=== PATIENT | male | born 2000 | race Caucasian/White ===

== ENCOUNTER 2018-08-31 08:29 | Emergency (ER) | payer OTHER ==
--- OUTSIDE RECORDS SUMMARY | 2018-08-31 08:41 | XMS REPORT | Continuity of Care Document ---
:2000 External Reference #:[id number] Author Name Genaro Olivera M.D. Address [address] [facility] [address] [place] [address] Care Team Providers Name Role Phone Genaro Olivera M.D. 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 Active Onset: 04/28/2018 Psoriasis Genaro Olivera M.D. Active Onset: 04/28/2018 Psoriasis with arthropathy Genaro Olivera M.D. Active Family History Date Family Member(s) Problem(s) Comments Father Hypertension Mother Anxiety First Sister None First Sister Magaly Social History Type Date Description Comments Sex Unknown Education Currently working on their bachelor's degree (at [employer], studying geology w/ minor in chemistry, hoping to become a senior accounting specialist). Marital Status Patient is single Sleep Typically sleeps 10 hours a night Tobacco Use Reviewed: 04/28/18 Denies Cigarette Use Smoking Status Reviewed: 04/28/18 Denies Cigarette Use Sun Exposure Moderate amount of sun exposure. Uses sunscreen Seat Belt/Car Seat Always uses a seat belt Bike Helmet Patient always wears a bike helmet Guns in Home There are not guns in the home Smoke Alarms There are smoke alarms in the house Currently Active The patient is currently not sexually active Father's Occupation Manager Membership Mother's Occupation Therapeutic Dietitian/Media Liaison Officer Allergies, Adverse Reactions, Alerts Date Description Reaction Status Severity Comments 04/06/2004 Zithromax Active abdominal pain and vomiting 06/14/2013 Cephalexin Active possible drug rash (see 06/14/13 note) Medications Medication Date Status Form Strength Qnty SIG Indications Ordering Provider Chantal Marie 08/24/ Active Aerosol 100-25mcg/ 28unit 1 puff R05 Silcoff , 2018 Inh s every day; Genaro, for cough; M.D. stop when cough resolved; resume at onset of colds; rinse mouth out after use Proair 08/24/ Active Aerosol 108(90Base 1units 2 puffs R05 Silcoff, Respiclick 2017 ) mcg/Act every 4 Genaro, hours as M.D. needed for cough, wheezing, shortness of breath Enbrel 10/14/ Active Solution 50mg/ml use as L40.9 Last Martinez 2017 Auto-Injec directed; ert M.D. t for psoriatic arthritis L40.50 Ibuprofen 07/25/20 Hx Tablets 800mg 60tabs 1 tablet up to M08.3 Silcoff , 17 - every 8 hours as Genaro 07/25/20 needed for M.D. 18 inflamed and painful fingers/hands Calcipotriene 06/10/20 Hx Cream 0.005% apply to L40.9 Mcalliste 16 - forehead/hairlin r, 04/27/20 e once a day as Azra 18 needed for , psoriasis Fluocinolone 03/27/20 Hx Oil 0.01% 236.56m apply to L40.9 Silcoff, Acetonide Scalp 16 - l involved areas Genaro 04/27/20 of scalp at M.D. 18 night as needed, for seborrhea Z00.129 Prednisone 06/14/2013 - Hx Tablets 10mg 56tabs 6 po qam for 693.0 Silcoeros, 06/28/2013 5 days then Etta Lam 4 po qam for 3 days then 2 po qam for 3 days then 1 po qam for 3 days then d/c Omeprazole 01/21/2012 - Hx Capsules DR 40mg 30caps Take 1 530.81 Silcoff, 02/13/2015 Capsule Etta Lam Daily For Acid Reflux. Temovate 12/25/2011 - Hx Solution 0.05% 50ml apply to L40.9 Silcoff, 04/21/2017 affected Etta Lam area on scalp 2x/day as needed (don't use on same day as fluocinolone ) Z00.129 Omeprazole 12/25/2011 - Hx Capsules DR 20mg 30caps 1 by mouth 530.81 Charles 01/21/2012 every day for A. acid reflux Etta Rodarte Zantac 75 12/21/2011 - Hx Tablets 75mg otc as Directed Unknown 12/28/2012 Denis May Take 11/20/2011 - Hx as needed for 787.02 Silcoff, Ondansetron Odt 02/13/2015 nausea Genaro, (4MG) Up To M.D. Every 4HRS Ondansetron Odt 11/20/2011 - Hx Tablets 4mg 10tabs 1 by mouth 787.02 Silcoff, 08/11/2012 Dispers every 4 hours Genaro as needed for M.D. nausea Ketoconazole 11/18/2011 - Hx Shampoo 2% 120ml apply to 690.11 Silcoff, 12/29/2012 affected area Genaro, every other M.D. day until much better, then taper Nystatin/Triamci 10/11/2011 - Hx Cream 99548 80grams apply bid x Silcoff, nolone 11/17/2011 0-0.1 10-14 days Genaro, Unit/ M.D. GM-% Ketoconazole 09/05/2011 - Hx Cream 2% 80gr apply to 690.18 Silcoff, 11/17/2011 affected areas Genaro, bid x 2 weeks M.D. Hydrocortisone 09/05/2011 - Hx Cream 1% 1tube apply to 690.18 Silcoff, Maximum Strength 11/17/2011 affected areas Genaro, up to bid x 2 M.D. week Advair Diskus 09/23/2008 - Hx Misc 250/5 2sample 1 puff bid; 786.2 Silcoff, 06/18/2011 0 Gargle After Genaro, Use; stop when M.D. cough has been gone for about 1wk; resume at onset of colds Ventolin HFA 09/23/2008 - Hx Aerosol 108mc 1sample 2 Puffs Q4H 786.2 Silcoff, 06/18/2011 g/Act prn For Cough, Genaro, Wheezing, SOB; M.D. use w/ a spacer Aerochamber Plus 09/23/2008 - Hx Misc 1units Use as 786.2 Silcoff, 06/18/2011 Directed For Genaro, ALL Metered M.D. Dose Inhalers Robitussin ac 09/23/2008 - Hx 8Oz 2 tsp po q4h 786.2 Silcoff, 10/23/2008 prn for cough Etta Lam Ciprodex 07/12/2008 - Hx Suspension 0.3-0 1Bottle 4 gtts To 380.10 Silcoff, 07/19/2008 .1% Right Ear bid Genaro For 1WK M.DRoberto Amoxicillin 07/12/2008 - Hx Suspension 400mg [id number] 6cc po tid for 380.10 Silcoff, 07/22/2008 Rec /5ML ear infection; Genaro fill this Rx M.DRoberto only if ear pain not much better by the end of this week Lamictal 02/12/2007 - Hx Tablets 25mg 120tabs qd Charles 02/12/2007 Gen Rodarte M.D. Klonopin 02/12/2007 - Hx Tablets 1mg 10tabs 1 tab q am and 02/12/2007 2 tabs q pm Gen Rodarte M.D. Zyprexa 02/12/2007 - Hx Tablets 20mg 30tabs 1 and 1/2 q am Charles 02/12/2007 Gen Rodarte M.D. Miralax 02/12/2007 - Hx Powder 1Bottle 30 cc qd Charles 02/12/2007 Gen Rodarte M.D. Ortho Tri-Cyclen 02/12/2007 - Hx Tablets 0.035 1Pack take as 02/12/2007 mg;0. directed ARoberto 18mg; Meir Rodarte M.D. Aristocort 08/18/2006 - Hx Ointment 0.1% 30gm rub in well 782.1 Charles 07/12/2008 tid Gen Rodarte M.D. Nystatin 08/18/2006 - Hx Suspension 100,0 480ml 1 tbsp tid 782.1 [facility] 07/12/2008 00Uni A. ts/ML Etta Rodarte Bactroban 07/30/2006 - Hx Cream 2% 30gm apply to 684 Silcoff, 08/13/2006 affected area Genaro, on face M.D. 4-6x/day (preferably after washing with an antibacterial soap) Mebendazole 07/02/2006 - Hx Chewtabs 100mg 5units 1 po x1 dose 127.4 Charles 07/03/2006 each person in A. family should Klepashonna, take it M.D. Nystatin 07/02/2006 - Hx Cream 100,0 30gm apply to 112.2 Jarod, 08/01/2006 00Uni affected area Genaro, ts/GM on penis (and M.D. buttocks prn) tid prn Amoxicillin 11/21/2005 - Hx Chewtabs 250mg take 1 tablet Breiman, 12/01/2005 3 times A day Hilda, for 10 days N.P. So 10/15/2005 - Hx Breiman, 10/16/2005 Hilda, N.P. Sodium Sulamyd 10/15/2005 - Hx Solution 10% 1bottle instill 1 or 2 Breiman, Opthalmic 10/19/2005 drops in the Hilda, lower N.P. lid of the affected eye 4 times A day Cortisporin Otic 06/11/2005 - Hx Solution 5mg;1 QS 1 dropperful 380.12 [facility] 06/18/2005 0000U (5 drops) qid A. ;10mg for 7 days Cayden /ALIYAH Quiles Bactrim 10/23/2004 - Hx Suspension 200mg QS 3 tsp bid for 466.0 [facility] 11/02/2004 ;40mg ten days A. /5ML Etta Rodarte Phenergan W/ 10/10/2004 - Hx Syrup 6.25m 8Oz 1-2 tsp qid 786.2 [facility] Codeine 12/27/2004 g;10m prn cough A. g/5ML Etta Rodarte Delsym 10/10/2004 - Hx Takes 786.2 [facility] 12/27/2004 According To A. Package Rory Rodarte M.D. (Over The Counter) Zithromax 04/04/2004 - Hx Suspension 100mg Breiman, 04/04/2004 /5 ML Hilda, N.P. Zithromax 04/04/2004 - Hx Suspension 200mg 38ml take 1 and 1/2 Silcoff , 04/06/2004 /5 ML tsp orally for Genaro, 5 days M.D. after meals Ceftin 02/28/2004 - Hx Suspension 250mg 100cc 1 teaspoon 2 Breiman, 04/04/2004 /5 ML times a day Hilda, for 10 days N.P. Penicillin VK 01/31/2004 - Hx Powder 250mg 150ml 1 tsp 3 times Breiman , 04/04/2004 /5 ML a day for 10 Hilda, days N.P. Penicillin VK 12/06/2003 - Hx Powder 250mg [id number] 1 tsp po qid Silcoff , 12/16/2003 /5 ML for 10 days Etta Lam Multivitamins W/ 06/21/2003 - Hx Tablets .25mg 120tabs 1 qd Charles Fluoride 06/19/2011 Gen Rodarte M.D. Multivitamins/Fl - Hx Chewtabs 1mg 1 by mouth V20.2 Unknown uoride 02/13/2015 once daily, chewed thoroughly Clobetasol - Hx Solution 0.05% 50units Apply To The L40.9 Silcoff, Propionate 04/27/2018 Affected Area Genaro, On Scalp Twice M.D. A Day as Needed--DO Not Use On Same Day as Fluocinolone Medications Administered in Office Medication Date Status Form Strength Qnty SIG Indications Ordering Provider [id number] Swine Flu Administered Injection Nurse's Vaccine 009 Schedule Immunizations CPT Code Status Date Vaccine Lot # [id number] Given 08/07/2018 Influenza Virus Vaccine, Quadrivalent, Split, [id number] Preservative Free 55557 Given 09/11/2017 Influenza Virus Vaccine, Quadrivalent, Split, Preservative Free 66565 Given 09/11/2016 Influenza Virus Vaccine, Quadrivalent, Split, [id number] Preservative Free 11946 Given 09/12/2015 Influenza Virus Vaccine, Quadrivalent, Split, [id number] Preservative Free 58174 Given 02/14/2015 Menactra Menningitis Vaccine [id number] 94586 Given 09/13/2014 Flu, Split Virus 3Yrs [id number] 38892 Given 08/30/2013 Flu, Split Virus 3Yrs [id number] 90541 Given 08/13/2012 Flu, Split Virus 3Yrs 68134 Given 08/13/2012 Flu, Split Virus, 2-35 Mo Dose [id number] 27251 Given 06/29/2012 Gardasil HPV vaccine [id number] 77921 Given 02/26/2012 Gardasil HPV vaccine [id number] 93482 Given 12/25/2011 Hep A, Ped/Adolscent, 2 Dose [id number] 38331 Given 12/25/2011 Gardasil HPV vaccine [id number] 22548 Given 09/05/2011 Flu, Split Virus 3Yrs [id number] 80367 Given 06/19/2011 Menactra Menningitis Vaccine [id number] 16145 Given 06/19/2011 Hep A, Ped/Adolscent, 2 Dose [id number] 41150 Given 09/26/2010 Flu, Split Virus 3Yrs [id number] 45983 Given 07/24/2010 Adacel or Boostrix, TDaP [id number] 98569 Given 08/03/2009 flu mist - live influenza virus vaccine for [id number] intranasal use 08105 Given 09/15/2008 Flu, Split Virus 3Yrs [id number] 69992 Given 02/12/2007 Varicella (Chicken Pox) Immunization [id number] 81468 Given 04/17/2004 Dtap Immunization (Tripedia) (Infanrix) 17441 Given 04/17/2004 MMR Virus Immunization 20015 Given 04/17/2004 Poliomyelitis Immunization 61536 Given 10/05/2003 Flu, Split Virus 3Yrs 16214 Given 03/09/2001 Prevnar (Pneumococcal Conjugate) 32272 Given 07/15/2000 Dtap Immunization (Tripedia) (Infanrix) 29228 Given 04/11/2000 MMR Virus Immunization 74457 Given 04/11/2000 Hib 4 Dose, Acthib 65895 Given 01/02/2000 Varicella (Chicken Pox) Immunization 88072 Given 08/27/1999 Hep B Immunization, Ped/Adolescent To 11 Yrs 58187 Given 05/30/1999 Hib 4 Dose, Acthib 80409 Given 05/30/1999 Dtap Immunization (Tripedia) (Infanrix) 50653 Given 05/30/1999 Poliomyelitis Immunization 98955 Given 03/30/1999 Poliomyelitis Immunization 42344 Given 03/30/1999 Dtap Immunization (Tripedia) (Infanrix) 44264 Given 03/30/1999 Hib 4 Dose, Acthib 40222 Given 01/25/1999 Poliomyelitis Immunization 14589 Given 01/25/1999 Dtap Immunization (Tripedia) (Infanrix) 71725 Given 01/25/1999 Hib 4 Dose, Acthib 93270 Given 1998 Hep B Immunization, Ped/Adolescent To 11 Yrs 23422 Given 1998 Hep B Immunization, Ped/Adolescent To 11 Yrs Vital Signs Date Vital Result Comment 08/24/2018 2:55pm BP Systolic 130 mmHg BP Diastolic 76 mmHg Respiratory Rate 12 /min not laboured Body Temperature 97.5 F Weight 193.00 lb 04/28/2018 1:23pm BP Systolic 126 mmHg BP Diastolic 78 mmHg Height 70.5 inches 5'10.50" Weight 183.50 lb BMI (Body Mass Index) 26.0 kg/m2 04/22/2017 1:34pm BP Systolic 120 mmHg BP Diastolic 78 mmHg Height 70 inches 5'10" Weight 168.00 lb BMI (Body Mass Index) 24.1 kg/m2 12/04/2016 4:18pm BP Systolic 120 mmHg BP Diastolic 78 mmHg Body Temperature 98.3 F Height 70.50 inches 5'10.50" Weight 163.00 lb BMI (Body Mass Index) 23.1 kg/m2 06/11/2016 1:23pm BP Systolic 128 mmHg BP Diastolic 80 mmHg Heart Rate 76 /min reg Respiratory Rate 12 /min not laboured Height 70.5 inches 5'10.50" Weight 160.00 lb BMI (Body Mass Index) 22.6 kg/m2 02/14/2015 4:35pm BP Systolic 124 mmHg BP Diastolic 84 mmHg Height 70.5 inches 5'10.50" Weight 155.00 lb BMI (Body Mass Index) 21.9 kg/m2 02/25/2014 3:07pm BP Systolic 120 mmHg BP Diastolic 68 mmHg Body Temperature 98.2 F Height 69.50 inches 5'9.50" Weight 155.00 lb BMI (Body Mass Index) 22.6 kg/m2 09/15/2013 4:50pm BP Systolic 132 mmHg BP Diastolic 62 mmHg Heart Rate 76 /min reg Respiratory Rate 12 /min not laboured Height 69.25 inches 5'9.25" Weight 158.00 lb BMI (Body Mass Index) 23.2 kg/m2 06/14/2013 12:04pm BP Systolic 118 mmHg BP Diastolic 70 mmHg Body Temperature 97.7 F Height 70 inches 5'10" Weight 165.00 lb BMI (Body Mass Index) 23.7 kg/m2 12/29/2012 5:07pm BP Systolic 102 mmHg BP Diastolic 70 mmHg Body Temperature 98.0 F Height 69.25 inches 5'9.25" Weight 178.00 lb BMI (Body Mass Index) 26.1 kg/m2 08/13/2012 12:13pm BP Systolic 118 mmHg BP Diastolic 78 mmHg Height 68.75 inches 5'8.75" Weight 176.00 lb BMI (Body Mass Index) 26.2 kg/m2 12/25/2011 3:54pm BP Systolic 120 mmHg BP Diastolic 80 mmHg Body Temperature 97.3 F Weight 173.00 lb 11/20/2011 3:14pm Body Temperature 97.9 F Weight 167.00 lb Last Menstrual Period 0 11/18/2011 11:41am BP Systolic 94 mmHg BP Diastolic 60 mmHg Weight 165.00 lb 09/05/2011 3:11pm BP Systolic 130 mmHg BP Diastolic 58 mmHg Heart Rate 75 /min Height 67.25 inches 5'7.25" Weight 163.00 lb BMI (Body Mass Index) 25.3 kg/m2 Last Menstrual Period 0 06/19/2011 8:47am BP Systolic 120 mmHg BP Diastolic 74 mmHg Height 67 inches 5'7" Weight 160.00 lb BMI (Body Mass Index) 25.1 kg/m2 Last Menstrual Period 0 03/14/2010 4:23pm BP Systolic 110 mmHg BP Diastolic 64 mmHg Heart Rate 86 /min reg Respiratory Rate 12 /min not laboured Body Temperature 98.0 F Height 61.75 inches 5'1.75" Weight 114.00 lb BMI (Body Mass Index) 21.0 kg/m2 Last Menstrual Period 0 08/03/2009 3:39pm BP Systolic 110 mmHg BP Diastolic 70 mmHg Heart Rate 80 /min Respiratory Rate 16 /min Height 60.50 inches 5'0.50" Weight 113.00 lb BMI (Body Mass Index) 21.7 kg/m2 09/23/2008 5:37pm Body Temperature 98.2 F 09/15/2008 2:32pm BP Systolic 122 mmHg BP Diastolic 60 mmHg Heart Rate 80 /min Respiratory Rate 16 /min Height 59 inches 4'11" Weight 107.00 lb BMI (Body Mass Index) 21.6 kg/m2 07/12/2008 11:26am BP Systolic 110 mmHg BP Diastolic 62 mmHg Body Temperature 98.1 F Weight 105.50 lb 10/22/2007 4:11pm Height 56.50 inches 4'8.50" Weight 99.00 lb BMI (Body Mass Index) 21.8 kg/m2 08/24/2007 11:15am BP Systolic 104 mmHg BP Diastolic 74 mmHg Height 56.75 inches 4'8.75" Weight 98.00 lb BMI (Body Mass Index) 21.4 kg/m2 05/19/2007 11:27am BP Systolic 120 mmHg BP Diastolic 78 mmHg Body Temperature 98.6 F Height 55.50 inches 4'7.50" Weight 93.00 lb BMI (Body Mass Index) 21.2 kg/m2 02/12/2007 2:37pm BP Systolic 112 mmHg BP Diastolic 80 mmHg Heart Rate 80 /min Respiratory Rate 16 /min Height 55 inches 4'7" Weight 93.00 lb BMI (Body Mass Index) 21.6 kg/m2 08/18/2006 3:46pm Body Temperature 98.9 F Weight 84.00 lb 07/30/2006 11:37am BP Systolic 106 mmHg BP Diastolic 64 mmHg Body Temperature 98.1 F Height 54 inches 4'6" Weight 83.00 lb BMI (Body Mass Index) 20.0 kg/m2 07/02/2006 11:52am Body Temperature 98.7 F Weight 84.00 lb 01/06/2006 3:39pm BP Systolic 90 mmHg BP Diastolic 60 mmHg Heart Rate 80 /min Respiratory Rate 18 /min Height 51.9 inches 4'3.90" Weight 77.00 lb BMI (Body Mass Index) 20.1 kg/m2 Last Menstrual Period 0 11/21/2005 9:07am Body Temperature 99.2 F Height 52 inches 4'4" Weight 76.50 lb BMI (Body Mass Index) 19.9 kg/m2 10/15/2005 1:56pm Body Temperature 97.9 F Height 52.5 inches 4'4.50" Weight 75.00 lb BMI (Body Mass Index) 19.1 kg/m2 06/11/2005 10:35am Body Temperature 97.6 F Height 50.9 inches 4'2.90" Weight 70.00 lb BMI (Body Mass Index) 19.0 kg/m2 Last Menstrual Period 0 12/27/2004 3:53pm BP Systolic 90 mmHg BP Diastolic 60 mmHg Heart Rate 80 /min RRR Respiratory Rate 16 /min Height 50 inches 4'2" Weight 69.00 lb BMI (Body Mass Index) 19.4 kg/m2 10/23/2004 3:42pm Body Temperature 97.1 F Weight 66.00 lb 10/10/2004 11:30am Body Temperature 98.6 F Weight 65.00 lb 04/04/2004 10:05am BP Systolic 100 mmHg BP Diastolic 50 mmHg Body Temperature 98.0 F Weight 61.00 lb 02/28/2004 9:23am Body Temperature 98.7 F Weight 59.00 lb 01/31/2004 11:14am Body Temperature 99.3 F PO Height 47.6 inches 3'11.60" Weight 58.00 lb BMI (Body Mass Index) 18.0 kg/m2 12/05/2003 11:31am BP Systolic 130 mmHg BP Diastolic 75 mmHg Heart Rate 70 /min Respiratory Rate 18 /min Body Temperature 99.5 F tylenol 90min ago Height 47.5 inches 3'11.50" Weight 54.00 lb And 1/2 LBS BMI (Body Mass Index) 16.8 kg/m2 Results Test Date Facility Test Result H/L Range Note Comp Metabolic Panel 10/14/2017 [facility] Sodium 137 mmol/L 133- 145 [phone] Potassium 4.3 mmol/L 3.5-5.0 Chloride 104 mmol/L 101-111 Co2 Carbon Dioxide 27 mmol/L 22-32 Anion Gap 6 mmol/L 2-11 Glucose 92 mg/dL 70-100 Blood Urea Nitrogen 14 mg/dL 6-24 Creatinine 0.77 mg/dL 0.67-1.17 BUN/Creatinine Ratio 18.2 8-20 Calcium 9.3 mg/dL 8.6-10.3 Total Protein 7.1 g/dL 6.4-8.9 Albumin 4.4 g/dL 3.2-5.2 Globulin 2.7 g/dL 2-4 Albumin/Globulin Ratio 1.6 1-3 Total Bilirubin 0.60 mg/dL 0.2-1.0 Alkaline Phosphatase 97 U/L 34-104 Alt 13 U/L 7-52 Ast 16 U/L 13-39 Egfr Non- 131.6 >60 Egfr 169.2 >60 1 Laboratory test 10/14/2017 [facility] C Reactive 17.12 mg/L High < 5.00 2 finding [phone] Protein CBC Auto Diff 10/14/2017 [facility] White Blood 7.7 10^3/uL 3.5- 10.8 [phone] Count Red Blood Count 4.90 10^6/uL 4.0-5.4 Hemoglobin 12.5 g/dL Low 14.0-18.0 Hematocrit 39 % Low 42-52 Mean Corpuscular Volume 79 fL Low 80-94 Mean Corpuscular Hemoglobin 26 pg Low 27-31 Mean Corpuscular HGB Conc 32 g/dL 31-36 Red Cell Distribution Width 15 % 10.5-15 Platelet Count 255 10^3/uL 150-450 Mean Platelet Volume 8 um3 7.4-10.4 Abs Neutrophils 4.7 10^3/uL 1.5-7.7 Abs Lymphocytes 2.3 10^3/uL 1.0-4.8 Abs Monocytes 0.6 10^3/uL 0-0.8 Abs Eosinophils 0.1 10^3/uL 0-0.6 Abs Basophils 0 10^3/uL 0-0.2 Abs Nucleated RBC 0.01 10^3/uL Granulocyte % 60.6 % 38-83 Lymphocyte % 29.6 % 25-47 Monocyte % 8.2 % 1-9 Eosinophil % 1.1 % 0-6 Basophil % 0.5 % 0-2 Nucleated Red Blood Cells % 0.1 Laboratory test 10/14/2017 [facility] Erythrocyte Sed 13 mm/Hr 0-14 finding [phone] Rate Comp Metabolic 09/11/2017 [facility] Sodium 138 mmol/L 133-145 Panel [phone] Potassium 4.4 mmol/L 3.5-5.0 Chloride 104 mmol/L 101-111 Co2 Carbon Dioxide 29 mmol/L 22-32 Anion Gap 5 mmol/L 2-11 Glucose 58 mg/dL Low 70-100 Blood Urea Nitrogen 13 mg/dL 6-24 Creatinine 0.79 mg/dL 0.67-1.17 BUN/Creatinine Ratio 16.5 8-20 Calcium 9.6 mg/dL 8.6-10.3 Total Protein 7.4 g/dL 6.4-8.9 Albumin 4.3 g/dL 3.2-5.2 Globulin 3.1 g/dL 2-4 Albumin/Globulin Ratio 1.4 1-3 Total Bilirubin 0.60 mg/dL 0.2-1.0 Alkaline Phosphatase 119 U/L High 34-104 Alt 20 U/L 7-52 Ast 18 U/L 13-39 Egfr Non- 127.7 >60 Egfr 164.3 >60 3 Laboratory test 09/11/2017 [facility] Erythrocyte Sed Rate 13 mm/Hr 0-14 finding [phone] Hepatitis B Surface Ag Nonreactive Nonreactive Hepatitis B Core AB Igm Nonreactive Nonreactive Hepatitis A AB Igm Nonreactive Nonreactive Hepatitis C Antibody Nonreactive Nonreactive Hla B27 09/11/2017 [facility] Hla B27 Negative 4 [phone] Hla B27 Interp See Comment 5 Iron & Iron Binding Capacity 07/15/2017 [facility] Iron 41 g/dL Low 50-212 [phone] Unsaturated Iron Binding 267 g/dL Total Iron Binding Capacity 308 g/dL 250-450 % Iron Saturation 13 % Low 15-55 Laboratory test 07/15/2017 [facility] Ferritin 32.6 ng/mL 24-336 finding [phone] Ssa/SSB Abs Igg 07/08/2017 [facility] SS-A/Ro Antibody <0.2 U 6, 7 [phone] SS-B/La Antibody <0.2 U 8 Laboratory test 07/08/2017 [facility] Anti Double <12.3 IU/mL 9 finding [phone] Stranded Dna AB CBC Auto Diff 07/08/2017 [facility] White Blood 8.2 10^3/uL 3.5- 10.8 [phone] Count Red Blood Count 4.96 10^6/uL 4.0-5.4 Hemoglobin 13.1 g/dL Low 14.0-18.0 Hematocrit 40 % Low 42-52 Mean Corpuscular Volume 80 fL 80-94 Mean Corpuscular Hemoglobin 26 pg Low 27-31 Mean Corpuscular HGB Conc 33 g/dL 31-36 Red Cell Distribution Width 15 % 10.5-15 Platelet Count 188 10^3/uL 150-450 Mean Platelet Volume 9 um3 7.4-10.4 Abs Neutrophils 5.9 10^3/uL 1.5-7.7 Abs Lymphocytes 1.7 10^3/uL 1.0-4.8 Abs Monocytes 0.5 10^3/uL 0-0.8 Abs Eosinophils 0.1 10^3/uL 0-0.6 Abs Basophils 0.1 10^3/uL 0-0.2 Abs Nucleated RBC 0 10^3/uL Granulocyte % 72.1 % 38-83 Lymphocyte % 20.4 % Low 25-47 Monocyte % 5.9 % 1-9 Eosinophil % 0.9 % 0-6 Basophil % 0.7 % 0-2 Nucleated Red Blood Cells % 0 Laboratory test finding 07/08/2017 [facility] Anti Nuclear Antibody 1.0 U 10 [phone] Rheumatoid Factor <15 IU/mL <15 11 Cyclic Citrullinated Pep Igg <15.6 U 12 Erythrocyte Sed Rate 9 mm/Hr 0-14 13 C Reactive Protein 18.70 mg/L High < 5.00 14 CBC Auto Diff 02/25/2014 [facility] White Blood Count 10.8 10^3/uL 4.8-10.8 [phone] Red Blood Count 5.49 10^6/uL High 4.0-5.4 Hemoglobin 15.5 g/dL 14.0-18.0 Hematocrit 45 % 42-52 Mean Corpuscular Volume 82 fL 80-94 Mean Corpuscular Hemoglobin 28 pg 27-31 Mean Corpuscular HGB Conc 34 g/dL 31-36 Red Cell Distribution Width 13 % 10.5-15 Platelet Count 218 10^3/uL 150-450 Mean Platelet Volume 8 um3 7.4-10.4 Abs Neutrophils 7.3 10^3/uL 1.5-7.7 Abs Lymphocytes 2.6 10^3/uL 1.0-4.8 Abs Monocytes 0.8 10^3/uL 0-0.8 Abs Eosinophils 0.1 10^3/uL 0-0.6 Abs Basophils 0.1 10^3/uL 0-0.2 Abs Nucleated RBC 0 10^3/uL Granulocyte % 67.8 % 38-83 Lymphocyte % 23.9 % Low 25-47 Monocyte % 7.1 % 1-9 Eosinophil % 0.7 % 0-6 Basophil % 0.5 % 0-2 Nucleated Red Blood Cells % 0 Laboratory test 02/25/2014 [facility] Erythrocyte Sed Rate 8 mm/Hr 0 -14 finding [phone] C Reactive Protein 12.40 mg/L High < 5.00 15 Rheumatoid Factor <15 IU/mL <15 16 Uric Acid 6.0 mg/dL 4.4-7.6 Lyme Western Blot 02/25/2014 [facility] Lyme Disease IgG Negative Negative [phone] Ab WB Lyme Disease IgG Bands Present p41, kDa Lyme Disease IgM Ab WB Negative Negative Lyme Disease IgM Bands Present No bands detecte <SEE NOTE> kDa 17 Lyme Disease Interpretation See Comment 18 Xray 02/25/2014 [facility] X-Ray, Finger[S], unremarkable (L Min. Of 2 Views, 2nd) LT Culture Urine 12/29/2012 In House Colonies neg Inhouse Urine Micro 12/29/2012 In House Ua WBC - Inhouse Ua RBC - Ua Casts - Ua Epi - Ua Other - Ua Glucose - Ua Bilirubin - Ua Ketones - Ua Specific Smilax 1.010 Ua Blood - Ua PH 6.5 Ua Protein - Ua Urobilinogen - Ua Nitrite - Ua Leukocytes - Clotest 03/11/2012 [facility] 19 [phone] <SEE NOTE> Surgical 03/11/2012 [facility] Surgical 20 Pathology [phone] Pathology <SEE NOTE> Xray 09/15/2007 [facility] MRI Brain With reviewed/no g fm99 [address] [place] [address] [phone] Ua Inhouse 02/12/2007 In House Ua Glucose - Ua Bilirubin - Ua Ketones - Ua Specific Smilax 1.020 Ua Blood - Ua PH 6.0 Ua Protein - Ua Urobilinogen - Ua Nitrite - Ua Leukocytes - Laboratory test finding 02/12/2007 In House Urine Microscopic Inhouse - Laboratory test finding 01/06/2006 In House Urine Microscopic Inhouse NEG Ua Inhouse 01/06/2006 In House Ua Glucose NEG Ua Bilirubin NEG Ua Ketones NEG Ua Specific Smilax 1.010 Ua Blood NEG Ua PH 5.0 Ua Protein NEG Ua Urobilinogen NEG Ua Nitrite NEG Ua Leukocytes NEG Laboratory test finding 11/21/2005 In House Culture Throat POSITIVE Culture Throat Rapid Screen NEGATIVE Ua Inhouse 12/27/2004 In House Ua Glucose neg Ua Bilirubin neg Ua Ketones neg Ua Specific Smilax 1.020 Ua Blood neg Ua PH 6.0 Ua Protein tr Ua Urobilinogen neg Ua Nitrite neg Ua Leukocytes neg Laboratory test finding 12/27/2004 In House Urine Microscopic Inhouse neg 1 Because ethnic data is not always readily available, this report includes an eGFR for both -Americans and non- Americans. The National Kidney Disease Education Program (NKDEP) does not endorse the use of the MDRD equation for patients that are not between the ages of 18 and 70, are , have extremes of body size, muscle mass, or nutritional status, or are non- or non-. According to the National Kidney Foundation, irrespective of diagnosis, the stage of the disease is based on the level of kidney function: Stage Description GFR(mL/min/1.73 m(2)) 1 Kidney damage with normal or decreased GFR 90 2 Kidney damage with mild decrease in GFR 60-89 3 Moderate decrease in GFR 30-59 4 Severe decrease in GFR 15-29 5 Kidney failure <15 (or dialysis) 2 Acute inflammation: >10.00 3 Because ethnic data is not always readily available, this report includes an eGFR for both -Americans and non- Americans. The National Kidney Disease Education Program (NKDEP) does not endorse the use of the MDRD equation for patients that are not between the ages of 18 and 70, are , have extremes of body size, muscle mass, or nutritional status, or are non- or non-. According to the National Kidney Foundation, irrespective of diagnosis, the stage of the disease is based on the level of kidney function: Stage Description GFR(mL/min/1.73 m(2)) 1 Kidney damage with normal or decreased GFR 90 2 Kidney damage with mild decrease in GFR 60-89 3 Moderate decrease in GFR 30-59 4 Severe decrease in GFR 15-29 5 Kidney failure <15 (or dialysis) 4 REFERENCE VALUE Not Applicable 5 RESULT: HLA-B27 antigen was not detected. ADDITIONAL INFORMATION Method: Flow Cytometry Performing Laboratory CLIA# [id number] Test Performed by: [address] [id number] 6 [id number] REFERENCE VALUE <1.0 (Negative) 8 REFERENCE VALUE <1.0 (Negative) Test Performed by: [address] [address] 9 REFERENCE VALUE <30.0 (Negative) Test Performed by: [address] [address] 10 REFERENCE VALUE <=1.0 (Negative) Test Performed by: [address] [address] 11 Test Performed by: [address] [address] 12 REFERENCE VALUE <20.0 (Negative) Test Performed by: [address] [address] 13 [id number] 14 Acute inflammation: >10.00 15 Acute inflammation: >10.00 16 Test Performed by: [place] [address] Straddle Buggy Operator: Marc Loya III, M.D. 17 No bands detected 18 Specific serologic response to B. burgdorferi infection is not detected, but cannot rule out early infection during which low or undetectable antibody levels to B. burgdorferi may be present. If clinically indicated, a new serum specimen should be submitted in 7-14 days. CDC criteria require >=5 bands for IgG or >=2 bands for IgM for the Immunoblot to be considered positive. Bands (e.g.,p41) may be detected in patients without Lyme disease, and patterns not meeting the CDC criteria should be interpreted with caution. Immunoblot should be ordered only on specimens that are positive or equivocal by a FDA-licensed Lyme disease antibody screening test (e.g., EIA). Test Performed by: [facility] - [address] [address] Straddle Buggy Operator: Marc Loya III, M.D. 19 RUN DATE: 03/12/12 [facility] NMI LIVE PAGE 1 RUN TIME: 817 Specimen Inquiry RUN USER: INTERFACE Name: SANDY VELEZ Status: REG REF Re03/11/12 Age/Sex: 11/M Unit#: [id number] Location: END : 98 SPEC #: [id number] JAYJAY: 03/11/12 STATUS: HUBERT REQ #: [id number] RECD: 03/11/12-[address] [facility] [address]: Abdoulaye MCFARLAND MD,Ra Art SOURCE: CLOTEST ENTR: 03/11/[address]: Jarod RAND,Genaro [facility]: ORDERED: CLOTEST ACT WKST: MISC 03/12/12 #1 Procedure Result Verified Site > CLOTEST Final 03/12/12- 817 ML CLOTEST NEGATIVE [facility] Permit #[id number] [address] [place] [address] DEPARTMENT OF PATHOLOGY, [address] [place] [id number] [facility] Permit #[id number] Etta Medina M.D. Waste Elimination 20 ---- RUN DATE: 03/12/12 [facility] NMI LIVE PAGE 1 RUN TIME: 8420 Specimen Inquiry RUN USER: INTERFACE -- [id number] Status: REG REF Re03/11/12 Age/Sex: 11/M Unit#: [id number] Location: [facility]. : 98 -- Specimen: [id number] SOUT Spec Date:03/11/12 Dr: Ra pichardo II Spec Type: SURGICAL P Received:03/11/12 Copies to: Genaro Olivera MD SPECIMEN 1) BIOPSY SECOND PORTION DUODENUM 2) BIOPSY DUODENAL BULB 3) BIOPSY GASTRIC ANTRUM 4) BIOPSY ESOPHAGOGASTRIC JUNCTION 5) BIOPSY ESOPHAGUS D6) MID ESOPHAGUS BIOPSY 7) CECUM BIOPSY 8) TRANSVERSE COLON BIOPSY 9) SIGMOID BIOPSY 10) RECTAL BIOPSY HISTORY POST-OP DIAGNOSIS: Grossly normal EGD and colonoscopy. Biopsies and clote st done. CLINICAL INFORMATION: Pain. Rectal bleeding. GROSS DESCRIPTION 1) The specimen is received in formalin labelled Sandy CinthyaRoberto Velez, Biopsy Second Portion of Duodenum, and consists of a gallagher soft tissue fragment measuring 1.0 x 0.3 x 0.1 cm. Submitted entirely, one cassette. 2) The specimen is received in formalin labelled Sandy Velez, Biopsy Duodenal Bulb, and consists of a gallagher soft tissue fragment measuring 0.7 x 0.3 x 0.2 cm. Submitted entirely, one cassette. 3) The specimen is received in formalin labelled Sandy Velez, Gastric Antrum Biopsy, and consists of a gallagher soft tissue fragment measuring 1.1 x 0.2 x 0.1 cm. Submitted entirely, one cassette. 4) The specimen is received in formalin labelled Sandy Velez, Biopsy Esophagogastric Junction, and consists of multiple gallagher-cheng soft tissue fragments measuring 0.7 x 0.4 x 0.1 cm. in aggregate. Submitted entirely, one cassette. 5) The specimen is received in formalin labelled Sandy Velez, Biopsy Esophagus, and consists of multiple gallagher soft tissue fragments measuring 0.6 x 0.3 x 0.1 cm. Submitted entirely, one cassette. 6) The specimen is received in formalin labelled Sandy Velez, Biopsy Mid Esophagus, and consists of two gallagher soft tissue fragments measuring 0.7 x 0.3 x 0.1 cm. Submitted entirely, one cassette. 7) The specimen is received in formalin labelled Sandy Velez, Biopsy Cecum, and consists of a gallagher soft tissue fragment measuring -- DEPARTMENT OF PATHOLOGY, [address] [place] [address] [facility] Permit #[id number] Etta Medina M.D. Assistant Dir ector -- -- RUN DATE: 03/12/12 [facility] NMI LIVE PAGE 2 RUN TIME: 1330 Specimen Inquiry RUN USER: INTERFACE -- Name: AGUSTINSANDY Mendes [id number] Status: REG REF Re03/11/12 Age/Sex: 11/M Unit#: [id number] Location: [facility]. : 98 -- -- CONTINUED -- GROSS DESCRIPTION (Continued) 0.7 x 0.3 x 0.1 cm. Submitted entirely, one cassette. 8) The specimen is received in formalin labelled Sandy Velez, Transverse Colon Biopsy, and consists of a gallagher soft tissue fragment measuring 1.0 x 0.2 x 0.1 cm. Submitted entirely, one cassette. 9) The specimen is received in formalin labelled Sandy Velez, Sigmoid Biopsy, and consists of a gallagher soft tissue fragment measuring 1.2 x 0.2 x 0.1 cm. Submitted entirely, one cassette. 10) The specimen is received in formalin labelled Sandy Velez, Rectal Biopsy, and consists of a gallagher soft tissue fragment measuring 0.6 x 0.3 x 0.1 cm. Submitted entirely, one cassette. DIAGNOSIS 1) Small bowel, duodenum, biopsy: A. Small bowel mucosa with normal villous architecture and no significant pathologic abnormality. B. No significant increase in eosinophils identified. 2) Small bowel, duodenal bulb, biopsy: A. Partially denuded small bowel mucosa with preserved villous architecture and prominent Sammi's gland. B. No increased eosinophils identified. 3) Stomach, antrum, biopsy: A. Gastric antral mucosa with minimal non-specific chronic inflammation. B. No active gastritis nor Helicobacter pylori-like organisms identified. 4) GE junction, biopsy: A. Superficial squamous epithelium with no significant pathologic abnormality. B. No evidence of reflux esophagitis identified. C. No glandular component identified. 5) Esophagus, biopsy: Scant superficial squamous epithelium with no significant pathologic abnormality. 6) Mid esophagus, biopsy: -- DEPARTMENT OF PATHOLOGY, [address] [place] [address] [facility] Permit #[id number] Roni Gilliam M.D. Director Sharif Griffith M.D. Stores Assistant Dir martínezor -- -- RUN DATE: 03/12/12 [facility] NMI LIVE PAGE 3 RUN TIME: 1330 Specimen Inquiry RUN USER: INTERFACE -- Name: SANDY VELEZ Status: REG REF Re03/11/12 Age/Sex: 11/M Unit#: [id number] Location: [facility]. : 98 -- -- CONTINUED -- DIAGNOSIS (Continued) A. Squamous mucosa with mild non-specific chronic inflammation and reactive changes. B. No eosinophils identified. 7) Colon, cecum, biopsy: A. Large intestinal mucosa with no significant pathologic abnormality. B. No evidence of acute or chronic inflammatory bowel process identified. 8) Colon, transverse, biopsy: A. Large intestinal mucosa with no significant pathologic abnormality. B. No evidence of acute or chronic inflammatory bowel process identified. 9) Colon, sigmoid, biopsy: A. Large intestinal mucosa with mild architectural disorder and abundant lamina propria muciphages (see comment). B. No active colitis, crypt abscesses or granulomas identified. 10) Colon, rectum, biopsy: A. Large intestinal mucosa with mild architectural disorder and abundant lamina propria muciphages (see comment). B. No active colitis, crypt abscesses or granulomas identified. COMMENT The findings in parts 9 and 10 are indicative of a resolving prior insult. There is no evidence of an active inflammatory bowel process. Signed Electronically by: RONI GILLIAM MD 03/12/12 0126 -- -- DEPARTMENT OF PATHOLOGY, [address] [place] [address] [facility] Permit #[id number] Roni Gilliam M.D. Director Sharif Griffith M.D. Stores Assistant Dir marli -- Procedures Date Code Description Status 04/28/2018 43318 Brief Emotional/Behav Assessment W/ Scoring Doc Per Completed Standard Inst 02/14/2015 91252 Visual Acuity Screening Test Completed 02/25/2014 79529 X-Ray Finger(S) Two Views Completed 09/15/2008 60850 Visual Acuity Screening Test Completed Encounters Type Date Location Provider Dx Diagnosis Office Visit 08/24/2018 Main Office Genaro Olivera, R05 Cough 3:00p M.D. Office Visit 04/28/2018 Main Office Genaro Olivera, Z00.01 Encounter for 1:30p M.D. general adult medical exam w abnormal findings L40.9 Psoriasis, unspecified L40.50 Arthropathic psoriasis, unspecified Z13.89 Encounter for screening for other disorder Office Visit 04/22/2017 1:30p Main Office Genaro Olivera, Z00.129 Encntr for M.D. routine child health exam w/o abnormal findings L21.8 Other seborrheic dermatitis L21.9 Seborrheic dermatitis, unspecified R22.30 Localized swelling, mass and lump, unspecified upper limb Z71.89 Other specified counseling Office Visit 12/04/2016 Main Office Jarod S63.634A Sprain of 3:30p Etta Lam interphalangeal joint of right ring finger, init Office Visit 06/11/2016 Main Office Jarod Z00.129 Encntr for routine 1:30p Etta Lam child health exam w/o abnormal findings L40.9 Psoriasis, unspecified Office Visit 02/14/2015 4:00p Main Office Genaro Olivera, V20.2 Routine Or M.D. Child Health Check 690.11 Seborrhea Capitis 690.10 Seborrheic Dermatitis Unspec v05.8 Single Disease Spec Other Vaccination & Inoculation V72.0 Examination Eyes & Vision v07.2 Prophylactic Immunotherapy Office Visit 02/25/2014 3:00p Main Office Genaro Olivera, 719.44 Pain Joint Hand M.D. 729.81 Swelling Of Limb Office Visit 09/15/2013 4:45p Main Office Genaro Olivera, V20.2 Routine Or M.D. Child Health Check 737.34 Scoliosis Thoracogenic 690.11 Seborrhea Capitis 690.10 Seborrheic Dermatitis Unspec 530.81 Esophageal Reflux Office Visit 06/14/2013 11:30a Main Office Genaro Olivera, 693.0 Dermatitis Due To M.D. Drugs & Medicines 960.9 Poisoning By Antibiotic Unspec Office Visit 12/29/2012 4:30p Main Office Genaro Olivera, 788.41 Urinary Frequency M.D. 788.43 Nocturia 788.1 Dysuria 690.18 Seborrheic Dermatitis Other 690.11 Seborrhea Capitis Office Visit 08/13/2012 12:15p Main Office Genaro Olivera, V20.2 Routine Or M.D. Child Health Check 690.10 Seborrheic Dermatitis Unspec 690.11 Seborrhea Capitis 530.81 Esophageal Reflux V04.81 Need For Prophylactic Vaccination & Inoculation/Influenza V07.2 Prophylactic Immunotherapy Office Visit 12/25/2011 3:30p Main Office Genaro Olivera, 690.18 Seborrheic M.D. Dermatitis Other 690.11 Seborrhea Capitis 530.81 Esophageal Reflux V65.49 Counseling Other Spec V05.8 Single Disease Spec Other Vaccination & Inoculation V05.3 Viral Hepatitis Vaccination & Inoculation V07.2 Prophylactic Immunotherapy Office Visit 11/20/2011 3:00p Main Office Genaro Olivera, 787.02 Nausea Alone M.D. Office Visit 11/18/2011 11:00a Main Office Genaro Olivera, 690.11 Seborrhea Capitis M.D. 690.18 Seborrheic Dermatitis Other 787.02 Nausea Alone Office Visit 09/05/2011 3:00p Main Office Swetha Callahan, 690.18 Seborrheic P.A. Dermatitis Other V04.81 Need For Prophylactic Vaccination & Inoculation/Influenza V07.2 Prophylactic Immunotherapy Office Visit 06/19/2011 8:30a Main Office Genaro Olivera, V20.2 Routine Or M.D. Child Health Check V06.3 Dtmxwdwnsh-Dwgryot-Fewv W/ Polio Vaccination & Inoculation V05.8 Single Disease Spec Other Vaccination & Inoculation V07.2 Prophylactic Immunotherapy Office Visit 03/14/2010 4:15p Main Office Genaro Olivera 786.50 Pain Chest Unspec M.D. Office Visit 08/03/2009 3:25p Main Office Charles Blevins V20.2 Routine Or Etta Rodarte Child Health Check V04.81 Need For Prophylactic Vaccination & Inoculation/Influenza V07.2 Prophylactic Immunotherapy Office Visit 09/23/2008 4:45p Main Office Genaro Olivera M.D. 786.2 Cough 461.9 Sinusitis Acute Unspec Office Visit 09/15/2008 2:30p Main Office Charles Rodarte V20.2 Routine Infant Or M.D. Child Health Check V72.0 Examination Eyes & Vision V04.81 Need For Prophylactic Vaccination & Inoculation/Influenza V07.2 Prophylactic Immunotherapy Office Visit 07/12/2008 11:30a Main Office Genaro Olivera, 380.10 Otitis Externa M.D. 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 Office Visit 08/24/2007 11:15a Main Office Charles Rodarte, 078.10 Viral Warts Etta Unspec 781.2 Gait Abnormality 315.39 Developmental Language Disorder Other Office Visit 05/19/2007 11:00a Main Office Jarod 110.3 Dermatophytosis Groin Etta Lam & Perianal Area Office Visit 02/12/2007 2:15p Main Office Charles Blevins V20.2 Routine Or Etta Rodarte Child Health Check 278.02 Overweight V05.4 Varicella Vaccination & Inoculation V07.2 Prophylactic Immunotherapy V81.6 Screening For Genitourinary Conditions Other & Unspec Office Visit 08/18/2006 3:25p Main Office Charles Blevins 782.1 Rash & Other Etta Rodarte Nonspec Skin Eruption Office Visit 07/30/2006 11:30a Main Office Genaro Olivera, 684 Impetigo Etta 465.9 URI Upper Respiratory Infections Acute Unspec Sites Office Visit 07/02/2006 11:00a Main Office Genaro Olivera, 112.2 Candidiasis Other Etta Urogenital Sites 127.4 Enterobiasis Office Visit 01/06/2006 3:15p Main Office Charles Blevins V20.2 Routine Infant Or Etta Rodarte Child Health Check Office Visit 11/21/2005 9:00a Main Office Hilda Bryant, 462 Pharyngitis Acute N.P. 382.00 Otitis Media Suppurative Acute Office Visit 10/15/2005 2:05p Main Office Annette 372.30 Conjunctivitis Unspec Hlida, N.P. Office Visit 06/11/2005 10:00a Main Office Charles Blevins 380.12 Swimmers Ear Acute Etta Rodarte 372.30 Conjunctivitis Unspec Office Visit 12/27/2004 3:45p Main Office Charles Rodarte V20.2 Routine Or Etta Child Health Check V07.2 Prophylactic Immunotherapy V04.81 Need For Prophylactic Vaccination & Inoculation/Influenza Office Visit 10/23/2004 3:45p Main Office Charles Blevins 466.0 Bronchitis Acute Etta Rodarte Office Visit 10/10/2004 11:15a Main Office Charles Blevins 786.2 Cough Etta Rodarte Office Visit 04/04/2004 10:20a Main Office Annette, 289.3 Lymphadenitis Unspec Hilda, N.P. Except Mesenteric 462 Pharyngitis Acute Office Visit 02/28/2004 9:00a Main Office Dianneiman, 462 Pharyngitis Acute Hilda, N.P. Office Visit 01/31/2004 11:00a Main Office Breiman, 462 Pharyngitis Acute Hilda, N.P. Office Visit 12/05/2003 11:30a Main Office Charles Blevins 558.9 Gastroenteritis & Etta Rodarte Colitis Noninfectious Other 462 Pharyngitis Acute 796.9 Abnormal Findings Other Nonspec V20.2 Routine Infant Or Child Health Check Office Visit 06/03/2003 4:00p Main Office Charles Blevins 783.40 Lack Of Normal Etta Rodarte Physiological Development Unspecified Plan of Treatment 08/24/2018 - Genaro Olivera M.D.R05 CoughNew Medication:Breo Ellipta 100-25 mcg/Inh - 1 puff every day; for cough; stop when cough resolved; resume at onsetof colds; rinse mouth out after useProair Respiclick 108(90 Base) mcg/Act - 2 puffs every 4 hours as needed for cough, wheezing, shortness of breathComments:Given Hx of prolonged coughs post URIs 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 RTO prn.
[2018-08-31 08:47] VITALS: BP 140/73
--- NOTE | 2018-08-31 09:06 | ED ---
Respiratory - HPI Summary HPI Summary: 17 yr old male with the complaint of runny nose, cough. Cough present for a month and productive of cheng sputum. He has had vomiting as well. No fever or chills. No other complaints today. No SOB, no CP. - History of Current Complaint Chief Complaint: UCRespiratory Stated Complaint: COUGH Time Seen by Provider: 08/31/18 08:50 Pain Intensity: 0 - Allergy/Home Medications Allergies/Adverse Reactions: Allergies Allergy/AdvReac Type Severity Reaction Status Date / Time cephalexin Allergy Unknown Swelling Verified 08/31/18 09:05 azithromycin [From Zithromax] Allergy See Comment Verified 08/31/18 08:41 PMH/Surg Hx/FS Hx/Imm Hx - Surgical History Surgery Procedure, Year, and Place: T&A Infectious Disease History: No Infectious Disease History: Denies: Traveled Outside the [place] in Last 30 Days - Family History Known Family History: Positive: None - Social History Alcohol Use: None Substance Use Type: Reports: None Smoking Status (MU): Never Smoked Tobacco Review of Systems Constitutional: Negative Positive: Ear Ache, Nasal Discharge Positive: Cough Positive: Vomiting All Other Systems Reviewed And Are Negative: Yes Physical Exam Triage Information Reviewed: Yes Vital Signs On Initial Exam: Initial Vitals Temp Pulse Resp BP Pulse Ox 98.6 F 91 15 140/73 97 08/31/18 08:42 08/31/18 08:42 08/31/18 08:42 08/31/18 08:42 08/31/18 08:42 Vital Signs Reviewed: Yes Appearance: Positive: Well-Appearing, No Pain Distress Skin: Positive: Warm, Skin Color Reflects Adequate Perfusion Head/Face: Positive: Normal Head/Face Inspection Eyes: Positive: EOMI ENT: Positive: Nasal congestion, TM red - left Neck: Positive: Nontender Respiratory/Lung Sounds: Positive: Clear to Auscultation, Breath Sounds Present , Other - a focal wheeze left lower chest. Cardiovascular: Positive: RRR. Negative: Murmur Abdomen Description: Positive: Nontender Musculoskeletal: Positive: Strength/ROM Intact Neurological: Positive: Sensory/Motor Intact, Alert, Oriented to Person Place, Time, CN Intact II-III Psychiatric: Positive: Normal - Joann Coma Scale Best Eye Response: 4 - Spontaneous Best Motor Response: 6 - Obeys Commands Best Verbal Response: 5 - Oriented Coma Scale Total: 15 Diagnostics - Vital Signs Vital Signs Temp Pulse Resp BP Pulse Ox 08/31/18 08:42 98.6 F 91 15 140/73 97 - Laboratory Lab Statement: Any lab studies that have been ordered have been reviewed, and results considered in the medical decision making process. - Radiology chest pa lat Radiology Interpretation Completed By: Radiologist - Left perihilar infiltrate. Pneumonia Disposition - Course Course Of Treatment: 17 yr old with pneumonia, and OM. Rx with Doxy. - Diagnoses Provider Diagnoses: Pneumonia, Otitis media, Hypertension Discharge - Sign-Out/Discharge Documenting (check all that apply): Patient Departure All imaging exams completed and their final reports reviewed: Yes - Discharge Plan Condition: Good Disposition: HOME Prescriptions: DOXYcycline CAP(*) [DOXYcycline 100MG CAP(*)] 100 mg PO BID #20 cap Patient Education Materials: Bacterial Pneumonia (ED), Ear Infection (ED), Hypertension (ED) Referrals: Genaro Olivera MD [Primary Care Provider] - 2 Days - Billing Disposition and Condition Condition: GOOD Disposition: Home
--- NOTE | 2018-08-31 09:13 | RAD ---
INDICATION: Cough for one month. COMPARISON: Comparison is made with a prior chest x-ray study from September 11, 2017. TECHNIQUE: Dual-energy PA and lateral views of the chest were obtained. FINDINGS: The heart is within normal limits in size. Mediastinal and hilar contours appear within normal limits. There is a faint patchy infiltrate which projects in the left perihilar region suggestive of pneumonia. The right lung is clear. No pleural effusion is seen. IMPRESSION: LEFT PERIHILAR INFILTRATE MOST CONSISTENT WITH PNEUMONIA.
== END 2018-08-31 09:31 | disposition home or self-care (01) ==
LOC: UCCORT 08:29
DX: J18.9 Pneumonia, unspecified organism (principal); I10 Essential (primary) hypertension; H66.90 Otitis media, unspecified, unspecified ear; Z88.1 Allergy status to other antibiotic agents
CPT/HCPCS: 71046; 99212; G0463

== ENCOUNTER 2019-08-16 12:19 | Emergency (ER) | payer OTHER ==
[2019-08-16 13:14] VITALS: BP 126/76
[2019-08-16] MEDS ORDERED: Albuterol/Ipratropium NEB.SOL* Albuterol 2.5 MG/Ipratropium 0.5 MG 3 ML INH ONE (13:25)
--- NOTE | 2019-08-16 13:30 | UC ---
Respiratory Complaint HPI - HPI Summary HPI Summary: Patient is a 18-year-old male with a history of psoriatic arthritis for which she is on Advil. Patient states for 7-8 days he's had progressive cough and congestion. Patient states he's bringing up yellow to brown sputum. No blood. Patient states he's had tactile temperatures but nothing documented. Patient states he has fatigue. Patient denies other complaints. No shortness of breath or chest pain. No nausea vomiting. No fever. No headache. No sinus congestion. Patient is a student; and has colleagues with similar symptoms. Patient's medications reviewed this visit. Patient's taken Motrin but no other [id number]-hoawdbd decongestants. Patient does not have a history of lung disease. - History of Current Complaint Chief Complaint: UCRespiratory Stated Complaint: UPPER RESPIRATORY COMPLAINT Time Seen by Provider: 08/16/19 13:06 Hx Obtained From: Patient Pain Intensity: 0 - Allergies/Home Medications Allergies/Adverse Reactions: Allergies Allergy/AdvReac Type Severity Reaction Status Date / Time cephalexin Allergy Unknown Swelling Verified 08/16/19 13:13 azithromycin [From Zithromax] Allergy See Comment Verified 08/16/19 13:13 Home Medications: Home Medications Etanercept [Enbrel] 50 mg SQ WEEKLY 08/16/19 [History Confirmed 08/16/19] PMH/Surg Hx/FS Hx/Imm Hx Previously Healthy: Yes - psoriatic arthritis - Surgical History Surgical History: Yes Surgery Procedure, Year, and Place: T&A - Family History Known Family History: Positive: Non-Contributory - Social History Occupation: Student Lives: Dormitory/Roommates Alcohol Use: None Substance Use Type: None Smoking Status (MU): Never Smoked Tobacco - Immunization History Vaccination Up to Date: Yes Review of Systems All Other Systems Reviewed And Are Negative: Yes Constitutional: Positive: Negative Skin: Positive: Negative Respiratory: Positive: Cough, Other - wheeze Gastrointestinal: Positive: Negative Genitourinary: Positive: Negative Is Patient Immunocompromised?: Yes Physical Exam - Summary Physical Exam Summary: Vital Signs Reviewed: Yes A+Ox3, no distress Eyes: Conjunctiva Clear, CRIS. EOM intact and full ENT: Hearing grossly normal TM x 2 clear, turbinates mildly boggy, + PND, mmoist, uvula midline, no exudate, no erythema Neck: Positive: Supple Respiratory: Positive: No respiratory distress, No accessory muscle use + coarse cough, scattered exp wheeze, speaking full easy sentences + BS throughout Cardiovascular: RRR nl s1, s2 no m/r CBT <2 sec abd soft + BS nt/nd no guarding, no distension Musculoskeletal Exam: WEINER x 4 without difficulty Strength Intact, ROM Intact Neurological: Positive: Alert, + sensation throughout Psychological: Positive: Normal Response To examiner Skin: Positive: no rash, no ecchymosis Triage Information Reviewed: Yes Vital Signs: Initial Vital Signs Temp 99.1 F 08/16/19 13:11 Pulse 86 08/16/19 13:11 Resp 20 08/16/19 13:11 BP 126/76 08/16/19 13:11 Pulse Ox 100 08/16/19 13:11 Re-Evaluation - Re-Evaluation First Eval Change: Improved - Patient reports feeling better following the neb. Patient with markedly improved lung sounds throughout. We'll prescribe an MDI as well as antibiotics. Secretion precautions discussed. Strict return precautions. Patient comfortable and agreeable with plan. Respiratory Course/Dx - Course Course Of Treatment: Patient presents to urgent care with 78 days progressive cough productive of yellow-brown sputum. Patient has shortness of breath. Patient denies documented fevers but has tactilely felt warm. Patient is immunocompromised on Embrel. On exam vital signs are stable. Patient does have coarse, scattered inspiratory expiratory wheezes. will give duoneb and reassess. If patient continues to the wheezing will have a coarse cough following the neb will consider chest x-ray this patient is immunocompromised. Anticipate patient with antibiotics given his underlying medical conditions. Patient comfortable in agreement with plan. Will reassess. - Differential Dx/Diagnosis Provider Diagnosis: Acute bronchitis Discharge ED - Sign-Out/Discharge Documenting (check all that apply): Patient Departure All imaging exams completed and their final reports reviewed: No Studies - Discharge Plan Condition: Stable Disposition: HOME Prescriptions: Albuterol HFA INHALER* [Ventolin HFA Inhaler*] 2 puff INH Q4H PRN #1 mdi PRN Reason: wheeze DOXYcycline CAP(*) [DOXYcycline 100MG CAP(*)] 100 mg PO BID #14 cap Patient Education Materials: Acute Bronchitis (ED) Referrals: Genaro Olivera MD [Primary Care Provider] - Additional Instructions: - Take antibiotics exactly as prescribed until gone -Use your albuterol puffer - 2 puffs ever 4-6 hours for the next 3 days - then as needed -Stay well hydrated - avoid excess caffeine and all alcohol - eat regular, healthy meals - okay to take over the counter decongestant medication - These infections are spread by oral secretions. Do not share eating or drinking utensils. Frequent hand washing is important. Clean items that may get your secretions on them such as cell phones, ipads, computer mouse, television remotes. Once you have been on antbiotics for 2 days, change your pillowcase and your toothbrush -Contact your doctor or the student to arrange a follow-up appointment this week. Call your doctor, return here or go to the emergency department with any questions or concerns - Billing Disposition and Condition Condition: STABLE Disposition: Home
== END 2019-08-16 13:52 | disposition home or self-care (01) ==
LOC: UCCORT 12:19
DX: J20.9 Acute bronchitis, unspecified (principal); L40.50 Arthropathic psoriasis, unspecified; Z79.899 Other long term (current) drug therapy; Z88.1 Allergy status to other antibiotic agents
CPT/HCPCS: 99212; A9270-GY; G0463